=== PATIENT | female | born 1970 | race Caucasian/White ===

== ENCOUNTER 2019-06-14 17:55 | Emergency (ER) | payer OTHER ==
[~2019-06-14] VITALS: Ht 149.9 cm; Wt 68.0 kg
[2019-06-14 18:02] VITALS: Ht 149.9 cm; Wt 68.0 kg
[2019-06-14 21:37] VITALS: BP 113/67
== END 2019-06-14 21:37 | disposition home or self-care (01) ==
LOC: ED 17:55
DX: S22.31XA Fracture of one rib, right side, initial encounter for closed fracture (principal); S22.32XA Fracture of one rib, left side, initial encounter for closed fracture; V42.5XXA Car driver injured in collision with two- or three-wheeled motor vehicle in traffic accident, initial encounter; Y93.I9 Activity, other involving external motion; Y92.488 Other paved roadways as the place of occurrence of the external cause; Y99.8 Other external cause status
CPT/HCPCS: J1885